=== PATIENT | female | born 1970 | race Caucasian/White ===

== ENCOUNTER → 2020-01-14 16:05 | Outpatient (CLI) | payer OTHER, SELFPAY ==
--- NOTE | ~2020-01-14 | MM_ITS ---
EXAMINATION: MM screening [facility] BI w jamshid HISTORY: Screening TECHNIQUE: Craniocaudal and mediolateral oblique 3-D tomosynthesis images were obtained and synthetic 2-D images were generated. CAD analysis was submitted and interpreted. COMPARISON: 01/10/2019 BREAST PARENCHYMAL COMPOSITION: The breasts are extremely dense, which lowers the sensitivity of mamm ography. FINDINGS: There is an 8 mm mass in the lower outer quadrant of the left breast. There are benign-appe aring calcifications which are stable. No mammographic evidence for malignancy in the right breast. IMPRESSION: 1. New 8 mm left breast mass, lower outer quadrant. 2. Additional mammographic views and possible breast ultrasound are recommended. BI-RADS Category 0: Incomplete: Needs additional imaging evaluation. Reviewed, dictated and finalized at location A. IMPRESSION: 1. New 8 mm left breast mass, lower outer quadrant. 2. Additional mammographic views and possible breast ultrasound are recommended . BI-RADS Category 0: Incomplete: Needs additional imaging evaluation.
== END ==
PROVIDERS: PCP Family Medicine; Visit Provider Family Medicine
DX: Z12.31 Encounter for screening mammogram for malignant neoplasm of breast (principal)
CPT/HCPCS: 77063; 77067

== ENCOUNTER → 2020-02-03 07:42 | Outpatient (CLI) | payer OTHER, SELFPAY ==
--- NOTE | ~2020-02-03 | MM_ITS ---
EXAMINATION: MM diagnostic mammo unilat LT HISTORY: Left breast mass on screening mammogram TECHNIQUE: Additional 3-D tomosynthesis images of the left breast were performed and synthetic 2-D im ages were generated. CAD analysis was submitted and interpreted. COMPARISON: 01/14/2020, 01/10/2019 FINDINGS: An 8 mm circumscribed equal density mass in the posterior third of the lower-outer quadrant of the breast at the 5:00 location 6 cm from the nipple previously measured 10 mm. Decrease in size is consistent with a benign finding such as a cyst. No suspicious mass, calcification, or architectur al distortion are identified. IMPRESSION: 1. No mammographic evidence of malignancy. 2. Recommend routine screening mammography in one year. BI-RADS Category 2: Benign finding(s). Reviewed, dictated and finalized at location A.
== END ==
PROVIDERS: PCP Family Medicine; Visit Provider Family Medicine
DX: R92.8 Other abnormal and inconclusive findings on diagnostic imaging of breast (principal)
CPT/HCPCS: 77065

== ENCOUNTER → 2021-01-17 07:17 | Outpatient (CLI) | payer OTHER, SELFPAY ==
--- NOTE | ~2021-01-17 | MM_ITS ---
EXAMINATION: MM screening [facility] BI w jamshid HISTORY: Screening TECHNIQUE: Craniocaudal and mediolateral oblique 3-D tomosynthesis images were obtained and synthetic 2-D images were generated. CAD analysis was submitted and interpreted. COMPARISON: Comparison to multiple prior studies sequentially, with oldest reviewed study dated 07/2018. BREAST PARENCHYMAL COMPOSITION: FINDINGS: There are bilateral breast asymmetries in the outer aspect of the right breast posteriorly on CC view and lower outer quadrant of the left breast. IMPRESSION: 1. Bilateral breast asymmetries. 2. Additional mammographic views and possible breast ultrasound are recommended. BI-RADS Category 0: Incomplete: Needs additional imaging evaluation. Reviewed, dictated and finalized at location A. IMPRESSION: 1. Bilateral breast asymmetries. 2. Additional mammographic views and possible breast ultrasound are recommended . BI-RADS Category 0: Incomplete: Needs additional imaging evaluation.
== END ==
PROVIDERS: PCP Family Medicine; Visit Provider Family Medicine
DX: Z12.31 Encounter for screening mammogram for malignant neoplasm of breast (principal); R92.8 Other abnormal and inconclusive findings on diagnostic imaging of breast
CPT/HCPCS: 77063; 77067

== ENCOUNTER → 2021-02-09 09:36 | Outpatient (CLI) | payer OTHER, SELFPAY ==
--- NOTE | ~2021-02-09 | MMUS_ITS ---
EXAMINATION: MM diagnostic [facility] BI w jamshid, US breast BI complete HISTORY: Follow-up breast asymmetries TECHNIQUE: Additional 3-D tomosynthesis images of the breasts were performed and synthetic 2-D images were generated. CAD analysis was submitted and interpreted. High resolution complete bilateral breas t ultrasound was performed. COMPARISON: Comparison to multiple prior studies sequentially, with oldest reviewed study dated 07/2018. BREAST PARENCHYMAL COMPOSITION: The breasts are extremely dense, which lowers the sensitivity of mamm ography FINDINGS: MAMMOGRAPHIC FINDINGS: There are no suspicious masses, calcifications or architectural distortion. There is scattered benign -appearing bilateral breast calcifications. ULTRASOUND: Right breast ultrasound: There are multiple simple and complicated cysts of the right breast. No susp icious masses to suggest malignancy. Left breast ultrasound: At 2:00, 3 cm from the nipple, there is an oval hypoechoic mass measuring 11 x 8 x 5 mm with heterogeneous internal echo texture, parallel orientation, no internal vascularity an d no significant posterior features. At 2:00 near the areola there is a 1 cm cyst. At 3:00, 5 cm from the nipple there is a 8 mm cyst. There are multiple additional simple and complicated cyst of the le ft breast. IMPRESSION: 1. Probable benign left breast mass at 2:00, 3 cm from the nipple measuring 11 mm. No definite mammog raphic correlate. Benign cysts of the right breast. 2. Recommend 6 month follow-up left breast ultrasound BI-RADS category 3, probably benign findings. Reviewed, dictated and finalized at location A. IMPRESSION: 1. Probable benign left breast mass at 2:00, 3 cm from the nipple measuring 11 mm. No definite mammographic correlate. Benign cysts of the right breast. 2. Recommend 6 month follow-up left breast ultrasound BI-RADS category 3, probably benign findings.
== END ==
PROVIDERS: PCP Family Medicine; Visit Provider Physician Assistant
DX: N63.21 Unspecified lump in the left breast, upper outer quadrant (principal); N60.02 Solitary cyst of left breast
CPT/HCPCS: 76641; 77062; 77066; G0279

== ENCOUNTER → 2021-08-12 07:38 | Outpatient (CLI) | payer OTHER, SELFPAY ==
--- NOTE | ~2021-08-12 | US_ITS ---
US breast LT limited DATE: 08/12/2021 08:54 INDICATION: Six-month follow-up of 2:00 breast mass 3 cm from nipple TECHNIQUE: Real-time imaging and color flow imaging targeted at 2:00 3 cm from nipple mass COMPARISON: 02/09/2021 bilateral complete ultrasound FINDINGS: There is an irregular heterogeneous hypoechoic solid mass at 2:00 3 cm from nipple, measuri ng approximately 6 x 8.5 x 9.6 mm. No internal vascularity or posterior shadowing is noted but the ma rgins are irregular. Ultrasound-guided biopsy is recommended. IMPRESSION: BI-RADS Category 4: Suspicious abnormality; biopsy should be considered Recommendation: Due to the irregular margins, ultrasound-guided biopsy of the left breast 2:00 lesion 3 cm from the nipple is recommended On 08/12/[address] Morris telephoned the report and ultrasound-guided biopsy recommendation to Dr. Lantigua's [employer]. Reviewed, dictated and finalized at Location A. Reviewed, dictated and finalized at location A. IMPRESSION: BI-RADS Category 4: Suspicious abnormality; biopsy should be consid ered Recommendation: Due to the irregular margins, ultrasound-guided biopsy of the l eft breast 2:00 lesion 3 cm from the nipple is recommended On 08/12/[address] Morris telephoned the report and ultrasound-guided biopsy recommendation to Dr. Lantigua's [employer].
== END ==
PROVIDERS: PCP Family Medicine; Visit Provider Nurse Practitioner Gerontology
DX: R92.8 Other abnormal and inconclusive findings on diagnostic imaging of breast (principal)
CPT/HCPCS: 76642

== ENCOUNTER 2021-08-22 13:27 | Outpatient (CLI) | payer OTHER, SELFPAY ==
--- NOTE | ~2021-08-22 | MMUS_ITS ---
EXAMINATION: US breast biopsy LT w image, MM post biopsy invasive LT DATE: 08/22/2021 14:50 (accession [id number]), 08/22/2021 14:46 (accession [id number]) INDICATION: Indeterminate mass of the upper outer quadrant of the left breast. Ultrasound-guided core biopsy is requested to evaluate for malignancy. TECHNIQUE AND FINDINGS: The risks and potential benefits of the procedure were discussed with the patient including bleeding and infection. A time out was performed. The skin of the left breast was prepared and draped in usual sterile fashion. 1% lidocaine was used for superficial anesthesia. 1% lidocaine with epinephrine was used for deep anesthesia. A vacuum-assisted biopsy gun needle was advanced through to the outer edge of the region of interest from a lateral approach utilizing sonographic guidance. A total of five tissue core samples were obta ined through the lesion. A tissue marker clip was then placed at the biopsy site. Hemostasis was achi eved. A sterile bandage was applied. The patient tolerated procedure well and there was no evidence of immediate complication. The patient was given verbal instructions to return to the Emergency Department in the event of severe breast pa in or rapid breast enlargement. A two view left breast mammogram was obtained to document tissue liv er clip placement. IMPRESSION: 1. Successful ultrasound-guided vacuum-assisted biopsy of left breast mass with tissue marker placeme nt. Reviewed, dictated and finalized at location A. IMPRESSION: 1. Successful ultrasound-guided vacuum-assisted biopsy of left breast mass with tissue marker placement.
== END 2021-08-22 13:28 | disposition home or self-care (01) ==
LOC: ANHIMG 13:28
PROVIDERS: PCP Family Medicine; Visit Provider Nurse Practitioner Gerontology
DX: R92.8 Other abnormal and inconclusive findings on diagnostic imaging of breast (principal); D24.2 Benign neoplasm of left breast; N60.82 Other benign mammary dysplasias of left breast; N60.32 Fibrosclerosis of left breast; N60.22 Fibroadenosis of left breast; N62 Hypertrophy of breast
CPT/HCPCS: 19083; 88305; A4648

== ENCOUNTER 2022-04-05 01:12 | Day surgery (SDC) | payer OTHER, SELFPAY ==
[2022-03-22 15:05] VITALS: BMI 25.6
--- NOTE | 2022-03-31 13:10 | PM.HPGS ---
History of Present Illness History of Present Illness Consent: Risks, benefits, and alternatives have been discussed and questions answered. Patient agrees to proceed with procedure. Chief complaint: anemia Narrative: Lyla Kuhn is a 51 year old female Was been found to be anemic. Her hemoglobin was 13.92 years ago. Now it is 10.7. She does not see blood in her stools. 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 Constipation by outlet obstruction Constipation, chronic Discitis of lumbosacral region Fibroids History of open sigmoidectomy Lipid screening Osteomyelitis of lumbar spine Other iron deficiency anemias Perforation of rectum Surgical History Surgical History (Updated 02/17/22 @ 08:27 by Dayna Lantigua MD) H/O colectomy S/P FELICITAS (total abdominal hysterectomy) Status post abdominal hysterectomy Social History Social History (Updated 02/17/22 @ 07:58 by Jessie Martinez) Social History: Single Smoking status: Never smoker Second hand tobacco smoke exposure: No Alcohol intake: never Substance use: never Substance use type: does not use Living arrangements: alone Gender identity (if verbalized by the patient): Female Sexual Orientation (if Verbalized by the Patient): Straight or Heterosexual Spiritual care concerns: No Meds Home Medications and Allergies Home Medications Medication Instructions Recorded Confirmed Type escitalopram oxalate 10 mg tablet 15 mg PO DAILY #135 tabs 03/21/22 03/22/22 Rx (Lexapro) Allergies Allergy/AdvReac Type Severity Reaction Status Date / Time No Known Allergies Allergy Verified 03/22/22 15:04 Assessment and Plan Assessment and plan (1) Anemia: Code(s): D64.9 - Anemia, unspecified Status: Acute Assessment and Plan: EGD with possible biopsy or dilatation or cautery. Colonoscopy with possible biopsy or polypectomy or cautery or injection of substances.
[2022-04-05 08:55] VITALS: BP 120/81; PULSE 81; RESP 18; TEMP 36.4; O2SAT 100
[2022-04-05] MEDS: LACTATED RINGERS 1,000 ML 150 ML IV CONT (09:06)
--- NOTE | 2022-04-05 09:31 | WPDANESEPPF ---
Anes - Initial Pre Proc Eval Procedure: Operation Date: 04/05/22 10:15 Proposed Procedures p Esophagogastroduodenoscopy & Colonoscopy - Gaurav Hopkins MD Date/Time: 04/05/22 09:31 Surgeon: Gaurav Hopkins MD Pre Op Diagnosis: anemia Patient Data Age: 51 Gender: F Height: 1.73 m Weight: 74.3 kg Last Vital Signs Temp 97.6 F 04/05/22 08:55 Pulse 81 04/05/22 08:55 Resp 18 04/05/22 08:55 BP 120/81 04/05/22 08:55 Pulse Ox 100 04/05/22 08:55 O2 Del Method Room Air 04/05/22 08:55 Allergies Allergy/AdvReac Type Severity Reaction Status Date / Time No Known Allergies Allergy Verified 04/05/22 08:54 Home Medications Medication Instructions Recorded Confirmed Type escitalopram oxalate 10 mg tablet 15 mg PO DAILY #135 tabs 03/21/22 03/22/22 Rx (Lexapro) Patient hx anesthesia problems: none Family hx anesthesia problems: none Results Review: All pre-operative results and documents have been reviewed as part of the pre-operative evaluation. 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 place Constipation by outlet obstruction Constipation, chronic Discitis of lumbosacral region Fibroids History of open sigmoidectomy Lipid screening Osteomyelitis of lumbar spine Other iron deficiency anemias Perforation of rectum Surgical History Surgical History (Updated 02/17/22 @ 08:27 by Dayna Lantigua MD) H/O colectomy S/P FELICITAS (total abdominal hysterectomy) Status post abdominal hysterectomy Social History Social History (Updated 02/17/22 @ 07:58 by Jessie Martinez) Social History: Single Smoking status: Never smoker Second hand tobacco smoke exposure: No Alcohol intake: never Substance use: never Substance use type: does not use Living arrangements: alone Gender identity (if verbalized by the patient): Female Sexual Orientation (if Verbalized by the Patient): Straight or Heterosexual Spiritual care concerns: No Anes - Eval Final PreProcedure Day of Procedure 04/05/22 09:31 Patient weight: normal Heart: regular rate and rhythm Lungs: clear to auscultation Airway: Mallampati scale class II Neurological: alert and oriented Last oral intake: >/= 8 hours ASA classification: II Emergent: no Anesthetic plan: proceed Anesthesia type and monitoring: general GIVS and standard monitoring Results Review: All pre-operative results and documents have been reviewed as part of the pre-operative evaluation. Informed Consent: The patient's anesthetic plan and its attendant risks and benefits were discussed with the patient/family/POA. Questions were solicited and answers provided to the satisfaction of the patient/family/POA.
--- NOTE | 2022-04-05 09:59 | SUR.OPER ---
EGD: [id number] COLON: [id number]
[2022-04-05 10:06] VITALS: BP 96/59; PULSE 59; RESP 18; O2SAT 99
[2022-04-05 10:16] VITALS: BP 96/60; PULSE 60; RESP 18; O2SAT 100
[2022-04-05 10:22] VITALS: BP 95/61; PULSE 56; RESP 18; O2SAT 100
== END 2022-04-05 10:41 | disposition home or self-care (01) ==
PROVIDERS: PCP Family Medicine; Visit Provider Internal Medicine Gastroenterology
PROC: 0DJ08ZZ Inspection of Upper Intestinal Tract, Via Natural or Artificial Opening Endoscopic (ICD-10-PCS; CPT 43235; principal; 2022-04-05 10:15)
DX: D50.9 Iron deficiency anemia, unspecified (principal); K31.7 Polyp of stomach and duodenum; Z90.49 Acquired absence of other specified parts of digestive tract
CPT/HCPCS: 45378; 43239; 87081; 88305; J2704; J7120

== ENCOUNTER → 2022-09-06 10:27 | Outpatient (CLI) | payer OTHER, SELFPAY ==
--- NOTE | ~2022-09-06 | DEXA_ITS ---
Bone Density Report Name: SARIAH GODOY Age: 52 Sex: Female Ethnicity: White Date of : 1970 Indication: postmenopausal; screening for osteoporosis; hysterectomy; Referring Provider: GABRIELE PETERSON Study: Bone densitometry was performed. Exam Date: September 06, 2022 Accession number: [id number] Bone Density: Region BMD T-score Z-score Classification AP Spine (L1-L4) 1.140 0.8 1.7 Normal Femoral Neck (Left) 0.942 0.8 1.6 Normal Total Hip (Left) 1.070 1.0 1.6 Normal Femoral Neck (Right) 0.857 0.1 0.9 Normal Total Hip (Right) 1.026 0.7 1.2 Normal Total Hip Mean 1.048 0.9 1.4 Normal World Health Organization criteria for BMD impression classify patients as: Normal (T-score at or above -1.0), Osteopenia (T-score between -1.0 and -2.5), or Osteoporosis (T-score at or below -2.5). 10-year Fracture Risk: FRAX not reported because: All T-scores for Spine Total, Hip Total, Femoral Neck at or above -1.0 Clinical Information Provided by Patient: Has used the following medications: Vitamin D Has the following medical conditions: Hysterectomy Patient maximum height was 67 Menopause Age: 48 Drinks caffeinated beverages Onset of menses at age 14 Number of children 0 Impression: The patient has normal bone mass. Discussion: BONE DENSITY IS ABOVE THE MINIMUM DESIRABLE LEVEL AT ALL SKELETAL SITES TESTED. This patient?s bone mineral density is above the minimum desirable level (T-score -1.0 or better) at all sites measured. The patient should follow a healthful lifestyle (good nutrition with adequate calcium and vitamin D, and appropriate weight-bearing exercise). Follow-Up: Consider repeating this study in 5 years or sooner if there is some new clinical indication. Reported by: SANDY on 09/06/2022 11:24:00 AM. Reviewed, dictated and finalized at location ASarah HOYT
--- NOTE | ~2022-09-06 | MM_ITS ---
EXAMINATION: MM screening [facility] BI w jamshid HISTORY: Screening mammogram TECHNIQUE: Craniocaudal and mediolateral oblique 3-D tomosynthesis images were obtained and synthetic 2-D images were generated. Bilateral rotated lateral CC views. CAD analysis was submitted and interp reted. COMPARISON: 08/22/2021 left ultrasound guided biopsy (fibroadenoma) 08/12/2021 Limited left breast ultrasound 02/26/2021 diagnostic bilateral mammogram and complete bilateral breast ultrasound 01/17/2021 bilateral screening mammogram 02/03/2020 diagnostic left mammogram 01/14/2020, 01/2019 bilateral screening mammogram examinations BREAST PARENCHYMAL COMPOSITION: The breasts are extremely dense, which lowers the sensitivity of mamm ography. FINDINGS: There are scattered. Bilateral benign-appearing microcalcifications. Biopsy marker on the left; history of prior benign left breast biopsy (fibroadenoma). There is no kasey dence of suspicious mass, calcification, or architectural distortion to suggest malignancy in either breast. There has been no suspicious interval change. IMPRESSION: 1. No mammographic evidence of malignancy. 2. Recommend routine screening mammography in one year. BI-RADS Category 2: Benign finding(s). Reviewed, dictated and finalized at location A.
== END ==
PROVIDERS: PCP Family Medicine; Visit Provider Family Medicine
DX: Z12.31 Encounter for screening mammogram for malignant neoplasm of breast (principal); Z78.0 Asymptomatic menopausal state
CPT/HCPCS: 77063; 77067; 77080

== ENCOUNTER 2023-09-10 14:40 | Outpatient (CLI) | payer OTHER, SELFPAY ==
--- NOTE | ~2023-09-10 | MM_ITS ---
EXAMINATION: MM screening [facility] BI w jamshid HISTORY: Screening TECHNIQUE: Craniocaudal and mediolateral oblique 3-D tomosynthesis images were obtained and synthetic 2-D images were generated. CAD analysis was submitted and interpreted. COMPARISON: Comparison to multiple prior studies sequentially, with oldest reviewed study dated 10/2019. BREAST PARENCHYMAL COMPOSITION: Dense: The breasts are extremely dense, which lowers the sensitivity of mammography. FINDINGS: There is no evidence of suspicious mass, calcification, or architectural distortion to sugg est malignancy in either breast. There has been no suspicious interval change. IMPRESSION: 1. No mammographic evidence of malignancy. 2. Recommend routine screening mammography in one year. BI-RADS Category 1: Negative Reviewed, dictated and finalized at location B.
== END 2023-09-10 14:41 ==
PROVIDERS: PCP Family Medicine; Visit Provider Physician Assistant
DX: Z12.31 Encounter for screening mammogram for malignant neoplasm of breast (principal)
CPT/HCPCS: 77063; 77067

== ENCOUNTER 2024-10-06 12:31 | Outpatient (CLI) | payer OTHER, SELFPAY ==
--- NOTE | ~2024-10-06 | MM_ITS ---
EXAMINATION: MM screening [facility] BI w jamshid HISTORY: Screening mammogram TECHNIQUE: Craniocaudal and mediolateral oblique 3-D tomosynthesis images were obtained and synthetic 2-D images were generated. CAD analysis was submitted and interpreted. COMPARISON: 09/10/2023, 09/06/2022, 02/09/2021, 01/17/2021 BREAST PARENCHYMAL COMPOSITION:Dense: The breasts are extremely dense, which lowers the sensitivity o f mammography. FINDINGS: No suspicious mass, calcification, or architectural distortion are identified in either [place] ast to suggest malignancy. There has been no suspicious interval change. IMPRESSION: No mammographic evidence of malignancy. Recommend routine screening mammography in one year. BI-RADS Category 1: Negative Reviewed, dictated and finalized at location .
== END 2024-10-06 12:32 | disposition home or self-care (01) ==
PROVIDERS: PCP Student in an Organized Health Care Education/Training Program; Visit Provider Student in an Organized Health Care Education/Training Program
DX: Z12.31 Encounter for screening mammogram for malignant neoplasm of breast (principal)
CPT/HCPCS: 77063; 77067